=== PATIENT | male | born 1935 | race Caucasian/White ===

== ENCOUNTER → 2019-11-04 12:18 | Outpatient (CLI) | payer MEDICARE, BC ==
--- NOTE | 2019-11-07 16:48 | EC ---
PATIENT:SHANKAR JOHNSON DATE OF SERVICE: 11/04/19 SEX: M MEDICAL RECORD: [id number] DATE OF : 39 LOCATION:[facility] AGE OF PATIENT: 84 ADMISSION DATE: 11/04/19 REFERRING PHYSICIAN: INTERPRETING PHYSICIAN: JUAN JUAREZ MD ECHOCARDIOGRAM REPORT ECHO CHARGES 4 ECHO COMPLETE Date: 11/04/19 CLINICAL DIAGNOSIS: CAD/MITRAL REGURG/TRICUSPID REGURG R ECHOCARDIOGRAPHIC MEASUREMENTS (adult normal given) AC root (d.<3.7cm) 3.8 cm LV Septum d (<1.2 cm> 1.2 cm Valve Excursion 2.5 cm LV Septum (systole) 1.5 cm Left Atria (s.<4.0cm> 3.6 cm LVPW d(<1.2cm) 1.4 cm RV (d.<2.3cm) 2.2 cm LVPW (sytole) 1.7 cm LV diastole(<5.6CM) 5.5 cm MV E-F(>70mm/sec) cm LV systole 3.7 cm LVOT Diameter 2.2 cm MV exc.(>10mm) 1.2 cm Est.ejection fraction (50-75%) % DOPPLER: LVIT cm/sec A 100.0cm/sec E 79.0 cm/sec LA cm/sec RVSP 37 mmHg LVOT 110 cm/sec AOP1/2T m/s Asc. Ao 136 cm/sec RVOT 78 cm/sec RA cm/sec PA 142 cm/sec AV Gradient Peak 7.44 mmHg AV Mean 3.64 mmHg AV Area 3.4 cm MV Gradient Peak 5.77 mmHg MV Mean 2.34 mmHg MV Area cm COMMENTS: Director Specialty: Shabbir PUTNAM Elastic Cutter: 1 Dr. Juarez TAPE# PACS Pericardial Effusion N DATE OF SERVICE: ECHOCARDIOGRAM FINDINGS: 1. Left ventricular chamber size is within normal limits. Left ventricular systolic function is normal at 65%. 2. Left atrium, right atrium and right ventricular chamber sizes are within normal limits. ECHOCARDIOGRAM REPORT [id number] SHANKAR JOHNSON 3. Valvular structures have normal structure and motion. 4. Doppler interrogation reveals mild mitral regurgitation, mild tricuspid regurgitation, no other valvular insufficiency or stenosis. Pulmonary systolic pressure is normal estimated at 35 mmHg. 5. No evidence of pericardial effusion or left ventricular thrombus. TRANSINT:[id number] Voice Confirmation ID: [id number] DOCUMENT ID: [id number] JUAN JUAREZ MD at 1648 CC: [id number] DICTATION DATE: 11/05/19 0753 TIRE BALANCER: 11/05/19 1005 DEP CLI 11/04/19 [place] [id number] [place] [id number]
== END | disposition home or self-care (01) ==
LOC: D.HCCECHO 12:18
PROVIDERS: ATTEND Internal Medicine Interventional Cardiology
DX: I25.10 Atherosclerotic heart disease of native coronary artery without angina pectoris (principal)